=== PATIENT | male | born 2000 | race Asian ===

== ENCOUNTER 2022-08-02 22:38 | Emergency (ER) | payer OTHER ==
[~2022-08-02] VITALS: Ht 162.6 cm; Wt 106.6 kg
[2022-08-02 23:09] VITALS: BP_SYST 135
[2022-08-03] MEDS ORDERED: SULF1TAB48 PO (00:05)
[2022-08-03 00:10] VITALS: BP_SYST 109
== END 2022-08-03 00:10 | disposition home or self-care (01) ==
LOC: SED 22:38
DX: R58 Hemorrhage, not elsewhere classified (principal); R22.2 Localized swelling, mass and lump, trunk; Z79.899 Other long term (current) drug therapy
CPT/HCPCS: 99283